=== PATIENT | male | born 1985 | race Caucasian/White ===

== ENCOUNTER 2024-07-18 10:57 | Emergency (ER) | payer OTHER, SELFPAY ==
--- NOTE | 2024-07-18 11:12 | ED_ITS ---
HPI - Ear Problem General Chief complaint: Ear Stated complaint: Bilateral Ear Pain Time Seen by Provider: 07/18/24 11:18 Source: patient Mode of arrival: ambulatory Limitations: no limitations History of Present Illness HPI Narrative: Benigno is a 38-year-old male patient presenting to the clinic today with complaints of bilateral ear pain, sinus pressure, nonproductive cough, sinus congestion, and headache. He reports symptoms have been going on for approximately 2 weeks. States he is tried some Tylenol and Flonase for his symptoms. Denies any chest pain or shortness of breath. Related Data Allergies Allergy/AdvReac Type Severity Reaction Status Date / Time No Known Allergies Allergy Verified 07/18/24 11:15 Review of Systems Review of Systems: Pertinent positives per HPI. Patient denies any fever, chills, rash, visual changes, dizziness, shortness of breath, chest pain, palpitations, nausea, vomiting, diarrhea, constipation, abdominal pain, or any urinary issues. PMFSH Comments At the time of my signature, I reviewed and agree with the nursing past medical, surgical, social, and family history. There is no relevant family history pertinent to the patient complaint. Exam Narrative: General: Well-developed, well nourished, in no apparent distress Head: Normocephalic, atraumatic Eyes: Pupils equally round and reactive to light bilaterally, EOM intact, sclera and conjunctive clear, no discharge, lids normal Ears: TMs intact, congestion, bulging, ear canals clear, no drainage, grossly hearing normal. Nose: Nares patent, yellow nasal discharge, moderate inflammation with white striae, maxillary sinus tenderness. Mouth: Oral pharynx without lesions or masses, good dentition, MMM. Postnasal drip Neck: Supple, trachea midline, no enlargement of anterior or posterior cervical nodes, no thyroid masses or goiter palpable. Cardio: Regular rate and rhythm, s1 and s2 normal, no murmur appreciated. Resp: Clear to auscultation bilaterally, no rhonchi, rales, wheezing or rubs Course Course Emergency Course: Portions of this record may have been created with voice recognition software. Level of Care: Express Care Visit Vital Signs Vital signs: Vital Signs Temperature 36.5 C 07/18/24 11:17 Pulse Rate 91 07/18/24 11:17 Respiratory Rate 16 07/18/24 11:17 Blood Pressure 156/93 H 07/18/24 11:17 Pulse Oximetry 98 07/18/24 11:17 Oxygen Delivery Room Air 07/18/24 11:17 Temperature 36.5 C 07/18/24 11:17 Pulse Rate 91 07/18/24 11:17 Respiratory Rate 16 07/18/24 11:17 Blood Pressure 156/93 H 07/18/24 11:17 Pulse Oximetry 98 07/18/24 11:17 Oxygen Delivery Room Air 07/18/24 11:17 Vital signs reviewed Medical Decision Making MDM Narrative Medical decision making narrative: At the time of visit patient is resting comfortably on the exam table. Patient appears to be nontoxic. Plan: I suspect patient has acute bacterial rhinosinusitis with otalgia. Prescription for Augmentin and prednisone was sent to the pharmacy. Supportive measures were discussed with the patient and they voiced understanding discharge instructions and agrees to treatment plan. Return precautions reviewed Differential Diagnosis Differential Diagnosis: Otitis media, otitis externa, eustachian tube dysfunction, cerumen impaction, upper respiratory infection, serous otitis Vital Signs Vital Signs: Vital Signs Temperature 36.5 C 07/18/24 11:17 Pulse Rate 91 07/18/24 11:17 Respiratory Rate 16 07/18/24 11:17 Blood Pressure 156/93 H 07/18/24 11:17 Pulse Oximetry 98 07/18/24 11:17 Oxygen Delivery Room Air 07/18/24 11:17 Temperature 36.5 C 07/18/24 11:17 Pulse Rate 91 07/18/24 11:17 Respiratory Rate 16 07/18/24 11:17 Blood Pressure 156/93 H 07/18/24 11:17 Pulse Oximetry 98 07/18/24 11:17 Oxygen Delivery Room Air 07/18/24 11:17 Discharge Plan Discharge Clinical Impression: Acute bacterial rhinosinusitis, Acute otalgia Patient Disposition: Home, Self-Care Condition: Stable Instructions: Antibiotic Form, Rhinosinusitis (ED), Earache (ED) Additional Instructions: Take prescription medications only as prescribed-prednisone and Augmentin Increase fluids and stay well hydrated Tylenol/motrin for pain/fever Flonase and OTC antihistamines as directed Vicks vapor rub to open sinuses Sinus rinses for congestion Cepacol spray, cough drops, throat lozenges, warm tea with honey/lemon, gargle salt water to soothe throat BRAT diet for diarrhea Clear liquids x 24 hours then advance as tolerated for nausea/vomiting Go to the ED if you develop a worsening in your condition- high fever not controlled by Tylenol or Motrin, dehydration, weakness, lethargy, shortness of breath, or chest pain. Follow up with your PCP in 3-5 days if symptoms persist. Patient Language: Chinese Prescriptions: New prednisone 20 mg tablet 40 mg PO DAILY 5 Days Qty: 10 0RF amoxicillin-pot clavulanate 875-125 mg tablet 1 tablet PO Q12H 10 Days Qty: 20 0RF Follow-up/Referrals: PHYSICIAN,SPORTS BETTING MANAGER [Primary Care Provider] - Time of Disposition: 11:24 Quality NIHSS Nursing Documentation ED NIHSS nursing documentation: reviewed/agree
--- OUTSIDE RECORDS SUMMARY | 2024-07-18 11:13 | XMS_ITS | Data Portability ---
Author Organization [place] - [facility], Haylee Broussard Address [address] [place] [address] Assessment Encounter Date Assessment Date Assessment LastModified by Organization Details LastModified Time 10/17/2023 10/17/2023 Patient tolerate d treatment well today. Treatment Plan: It is recommended that the patient receive spiritual care coordinator _2_ times per week for _3_ weeks then weekly for 1 month receiving spiritual care coordinator, MH, STIM. Graduate to IST when LEFT SI PAIN and PROM improves The patient will benefit from spiritual care coordinator and supporting therapies to conservatively manage pain and help facilitate a return to max functional capability. The patient's progress is dependent on patient compliance regarding home therapies and following the recommended treatment plan. Prognosis: good Co-Treatment: TBD Imaging: TBD Contraindications : None Patient Treatment Preference: N/A Visit Count: 0 Not available 10/17/2023 10:27:22 10/21/2023 10/21/2023 Patient tolerate d treatment well today. Treatment Plan: It is recommended that the patient receive spiritual care coordinator _2_ times per week for _3_ weeks then weekly for 1 month receiving spiritual care coordinator, MH, STIM. Graduate to IST when LEFT SI PAIN and PROM improves The patient will benefit from spiritual care coordinator and supporting therapies to conservatively manage pain and help facilitate a return to max functional capability. The patient's progress is dependent on patient compliance regarding home therapies and following the recommended treatment plan. Prognosis: good Co-Treatment: TBD Imaging: TBD Contraindications : None Patient Treatment Preference: N/A Visit Count: 1 Not available 10/21/2023 15:22:32 Plan of Treatment Reminders Order Date Submit Date Provider Last Modified By Organization Details Last Modified Time Details Appointments None record ed. Lab None record ed. Referral None record ed. Procedures None record ed. Surgeries None record ed. Imaging None record ed. Medication Orders None record ed. Patient Targets Encounter Date Encounter Id Patient Goals Patient Target Last Modified By Organization Details Last Modified Time 10/17/2023 [id number] 1 month of Pain Not available Not available Not available Jeanette [email or web address] Access Code: [email or web address] Not available 10/17/2023 10:26:33 Patient Instructions Encounter Date Encounter Id Patient Instructions Last Modified By Organization Details Last Modified Time 10/17/2023 [id number] Sit or lie in positions that are most comfortable and reduce your pain. Don t sit up in bed, and avoid soft couches and twisted positions. Bedrest can help relieve pain at first, but it delays healing. Avoid bedrest after the first day of back pain. Change positions every 30 minutes. If you must sit for long periods of time, take breaks from sitting. Get up and walk around, or lie in a comfortable position. Use a heating pad on a low or medium setting for 15 to 20 minutes every 2 or 3 hours. Try a warm shower in place of one session with the heating pad. You can also try an ice pack for 10 to 15 minutes every 2 to 3 hours. Put a thin cloth between the ice pack and your skin. Take Naproxen exactly as directed, up to 500 mg twice daily as need with food. Take short walks several times a day. You can start with 5 to 10 minutes, 2 or 3 times a day, and work up to longer walks. Walk on level surfaces and avoid hills and stairs until your back is better. Return to work and other activities as soon as you can. Continued rest without activity is usually not good for your back. To prevent future back pain, do exercises to stretch and strengthen your back and stomach. Learn how to use good posture, safe lifting techniques, and proper body mechanics. [email or web address] Not available 10/17/2023 10:10:00 Reason for Referral None Reported. Problems Name Problem SNOMED Code Status Onset Date Resolution Date Notes Provider Name and Address Organization Details Recorded Time Low back pain 829311986 Active 2023 Hardik Younger [address], [place], [address], [place] [facility] 10:10:01 Acute low back pain 340815923 Active 2023 Hardik Younger DC [address], [place], [address], [place] [facility] 10:10:04 Sacroiliac joint stiff 334197034 Active 2023 Hardik Younger [address], [place], [address], [place] [facility] 10:27:28 Sacroiliac joint pain 700307979 Active 2023 Hardik Younger DC [address], [place], [address], [place] [facility] 10:27:33 Thoracic segmental dysfunction 804917349 Active 2023 Hardik Younger [address], [place], [address], [facility] 10:27:37 Problem Notes None recorded. Procedures Surgical History Date Name Laterality Status Provider Name and Address Organization Details Recorded Time 11/11/19 92099: Electrical Stimulation (unattended) cancelled Hardik Younger DC [address], [place], [address], [facility] 11/11/2023 15:00:12 11/11/19 24 12957: Chiropractic Manipulative Treatment (CMT) Spinal 3-4 regions cancelled Hardik Younger DC [address], [place], [address], [facility] 11/11/2023 15:00:21 11/05/19 24 01012: Hot or Cold Pack cancelled Hardik Younger DC [address], [place], [address], [facility] 11/05/2023 15:40:56 11/05/19 24 58582: Electrical Stimulation (unattended) cancelled Hardik Younger DC [address], [place], [address], [facility] 11/05/2023 15:41:00 11/05/19 24 82221: Chiropractic Manipulative Treatment (CMT) Spinal 3-4 regions cancelled Hardik Younger DC [address], [place], [address], [place] [facility] 11/05/2023 15:40:58 10/24/19 35122: Hot or Cold Pack cancelled Hardik Younger DC [address], [place], [address], [place] [facility] 10/24/2023 13:51:48 10/24/19 39711: Electrical Stimulation (unattended) cancelled Hardik Younger DC [address], [place], [address], [place] [facility] 10/24/2023 13:51:51 10/24/19 27280: Chiropractic Manipulative Treatment (CMT) Spinal 3-4 regions cancelled Hardik Younger DC [address], [place], [address], [place] [facility] 10/24/2023 13:51:53 10/21/19 95603: Hot or Cold Pack completed Hardik Younger DC [address], [place], [address], [place] [facility] 10/21/2023 15:30:48 10/21/19 77280: Electrical Stimulation (unattended) completed Hardik Younger DC [address], [place], [address], [place] [facility] 10/21/2023 15:30:58 10/21/19 37154: Chiropractic Manipulative Treatment (CMT) Spinal 3-4 regions completed Hardik Younger DC [address], [place], [address], [place] [facility] 10/21/2023 15:34:56 10/17/19 60324: Hot or Cold Pack completed Hardik Younger DC [address], [place], [address], [place] [facility] 10/17/2023 10:24:01 10/17/19 11833: Electrical Stimulation (unattended) completed Hardik Younger DC [address], [place], [address], [place] [facility] 10/17/2023 10:24:11 10/17/19 69452: Chiropractic Manipulative Treatment (CMT) Spinal 3-4 regions completed Hardik Younger DC [address], [place], [address], [place] [facility] 10/17/2023 10:24:22 Imaging Results None recorded. Procedure Notes None recorded. Medical Equipment None Reported. Allergies No known drug allergies Medications Not known to be on any medication Vitals Date Recorded Body height Body mass index (BMI) Body weight Heart rate Oxygen saturation Oxygen saturation in Arterial blood by Pulse oximetry Body temperature Systolic blood pressure Diastolic blood pressure Provider Name and Address Organization Details Last Updated DateTime 180.34 cm 33.8 kg/m2 891454. 35 g 86 /min 98 % 98 % 98.5 [degF] 133 mm[Hg] 85 mm[Hg] Delilah Cervantes [place] [facility] 09:57:41 Social History Question Answer Notes LastModified by Organizat ion Details LastModified Time Tobacco Smoking Status Current Every Day Smoker Delilah mccain, [place] [facility] 10/17/2023 09:51:10 What Is Your Level Of Alcohol Consumption? Moderate [email or web address] Information not available 10/17/2023 What Is Your Level Of Caffeine Consumption? Heavy [email or web address] Information not available 10/17/2023 In The 14 Days Before Symptom Onset, Have You Had Close Contact With A Laboratory-confir med COVID-19 While That Case Was Ill? No [email or web address] Information not available 10/17/2023 In The 14 Days Before Symptom Onset, Have You Had Close Contact With A Person Who Is Under Investigation For COVID-19 While That Person Was Ill? No [email or web address] Information not available 10/17/2023 Have You Been To An Area Known To Be High Risk For COVID-19? No [email or web address] Information not available 10/17/2023 Do You Or Have You Ever Used E-cigarettes Or Vape? Current User Of Electronic Cigarettes Information not available 10/17/2023 Cigar Smoking No [email or web address] Information not available 10/17/2023 What Is Your Current Pack Years? 10-19packyears [email or web address] Information not available 10/17/2023 What Is Your Relationship Status? Single [email or web address] Information not available 10/17/2023 Do You Or Have You Ever Used Smokeless Tobacco? Currently Chews Tobacco [email or web address] Information not available 10/17/2023 How Much Tobacco Do You Smoke? 1 PPD Or Chews Or Vaps [email or web address] Information not available 10/17/2023 How Many Years Have You Smoked Tobacco? 12 [email or web address] Information not available 10/17/2023 Do You Or Have You Ever Used Any Other Forms Of Tobacco Or Nicotine? Yes [email or web address] Information not available 10/17/2023 Sex: Unknown Functional Status None recorded. Mental Status None recorded. Family History Nothing Reported. Medical History No medical history recorded. Past Encounters Encounter ID Performer Location Encounter Start Date Encounter Closed Date Diagnosis/Indication Diagnosis SNOMED-CT Code Diagnosis ICD10 Code Diagnosis Note [id number] Hardik Younger DC [facility] [address] [place] [address] 10/17/2023 09:42:31 10/17/2023 10:42:22 Low back pain 393040917 M54.50 LBP without sciatica, LEFT sacroiliit is, LEFT glute contractur e with QL tension; will manage with chiropract ic until/if symptoms don't improve in the next 6-8 weeks. Sacroiliac joint stiff 991969693 M25.60 LEFT SI Sacroiliac joint pain 20 8730345 M53.3 LEFT SI with AROM Thoracic s egmental dysfunction 802971763 M99.02 Midback tension related to postural alteration s. [id number] Hardik Younger DC [address] [place] [address] 10/21/2023 15:19:25 10/21/2023 15:36:02 Low back pain 779767905 M54.50 LBP without sciatica, LEFT sacroiliit is, LEFT glute contractur e with QL tension; will manage with chiropract ic until/if symptoms don't improve in the next 6-8 weeks. Sacroiliac joint stiff 465237138 M25.60 LEFT SI Sacroiliac joint pain 20 4214260 M53.3 LEFT SI with AROM Thoracic s egmental dysfunction 407285275 M99.02 Midback tension related to postural alteration s. Health Concerns Section Related Observation LastModified by Organization Detai ls LastModified Time None Recorded Concern Status LastModified by Organization Details LastModified Time None Recorded Advance Directives Directive None Recorded Payers Encounter Date Sequence Insurance Name Policy Number Policy Day Covered Member ID Day Member ID Guarantor Name 10/17/2023 1 [facility] [id number] Benigno Salcido [id number] Benigno Salcido 10/21/2023 1 Aaron REECE - [facility] [id number] Benigno Salcido [id number] Benigno Salcido Notes Date Note Type Note Provider Name and Address Organization Details Recorded Time 10/17/2023 text/html Lower BackReport ed bypatient.Location :left Quality:stabbing; sharp Severity:worst pain 8/10 Duration:1 weeks Timing:abrupt; morning Context:cannot identify Alleviating Factors:position change Aggravating Factors:sitting; lying down Patient presents with LBP that began last week on 10/11/23 without incident/injury as he woke up with intense pain in (his) lower back that would spike to 8/10, without sciatica or bladder/bowel changes. Since then, he has been on light duty and his symptoms have gradually decreased with fewer spikes and less intensity. He states his decreased workload has been of help to keep him loosened up . This is his first visit to a chiropractor. Hardik Younger DC [address], [place], [address], [place] [facility] 10/17/2023 10:42:08 10/21/2023 text/html Patient states h e experienced short term improvement with less pain in the morning but increasing pain as the day goes on, with throbbing pain around his LEFT HIP and bending over exacerbates those symptoms. L/S is more dull pain that doesn't vary, especially when driving, LEFT side feels worse. Hardik Younger DC [address], [place], [address], [place] [facility] 10/21/2023 15:35:45
[2024-07-18 11:17] VITALS: BP 156/93; PULSE 91; RESP 16; TEMP 36.5; O2SAT 98
== END 2024-07-18 11:27 | disposition home or self-care (01) ==
PROVIDERS: Emergency Provider Nurse Practitioner Family
DX: J01.90 Acute sinusitis, unspecified (principal); B96.89 Other specified bacterial agents as the cause of diseases classified elsewhere; H92.03 Otalgia, bilateral
CPT/HCPCS: 99203; G0463

== ENCOUNTER 2024-08-27 11:30 | Emergency (ER) | payer OTHER, SELFPAY ==
--- NOTE | 2024-08-27 11:35 | ED_ITS ---
HPI - URI/Sore Throat General Chief Complaint: Upper Respiratory Infection Stated Complaint: sore throat / Rt Ear Pain History of Present Illness HPI Narrative: 38 y/o male presented for c/o sore throat worsening x3 days. States he woke this morning feeling like something was stuck in his throat, and feels like he has mucous in the throat. States after talking loudly at work he gagged. Also reports right ear pain x3 days, tinnitus and burning sensation. Denies nasal congestion, headache, vomiting, or fever. Taking Theraflu, Dayquil and a 'sinus pill' since yesterday. Related Data Allergies Allergy/AdvReac Type Severity Reaction Status Date / Time No Known Allergies Allergy Verified 08/27/24 11:36 Review of Systems Review of Systems: per [facility] Social History Social History (Updated 08/27/24 @ 11:45 by Misti Pickering, [employer] [place]) Smoking packs per day: 1 Smoking cigarettes per day: 20.0 Smoking status: Current every day smoker Tobacco type: cigarettes Exam Narrative: GENERAL: well-appearing, no acute distress. EYES: conjunctivae clear ENT: Mucous membranes moist. TMs pearly farias with normal light reflex bilaterally; no tragal tenderness. Oropharynx severely erythematous Tonsils enlarged 3+ with exudate bilaterally. No drooling, no hoarseness, no trismus, uvula midline. No tripod positioning, hot potato voice, or soft palate swelling. NECK: Supple. bilateral anterior cervical lymphadenopathy CHEST: Clear to auscultation, breath sounds equal. No respiratory distress, speaks in full sentences. HEART: Tachycardic and Regular rhythm. No murmur heard. SKIN: Warm, moist NEURO: Alert and oriented x3. Course Course Emergency Course: Patient is aware of diagnosis, understands and agrees to treatment plan. Anticipatory guidance given. Patient agrees to follow-up as directed and is aware of reasons to seek care at the emergency department. Portions of this record may have been created with voice recognition software Level of Care: Express Care Visit MDM - URI/Sore Throat MDM Narrative Medical decision making narrative: strep result and physical exam findings reviewed with pt. Will treat based on PE and CC. Advise supportive treatments and s/s to go to the ER. Patient is appropriate for outpatient treatment and follow-up. Differential Diagnosis Differential diagnosis: Likely upper respiratory infection, viral infection and pharyngitis Discharge Plan Discharge Clinical Impression: Exudative tonsillitis Patient Disposition: Home Condition: Stable Instructions: Antibiotic Form, Strep Throat (ED) Additional Instructions: - Take the antibiotic as directed. Fever and sore throat typically resolve within one to three days. Most patients can return to work, after 12 to 24 hours of antibiotic therapy, provided you are fever free and otherwise well. -Eat and drink things that are easy to swallow, like soft foods, cool liquids, tea with honey, or popsicles . -Salt water gargles and/or may use topical anesthetic ( Chloraseptic spray) or lozenges to relieve dryness or throat pain -Alternate Tylenol and ibuprofen as needed for pain and fever as directed. -Frequent hand washing or hand adult literacy instructor is one of the best ways to prevent spread of infection. Throw away the toothbrush after 24hours of antibiotic. -Follow up with primary care provider in 2-3 days if condition is not improving -Go to the ER if you have trouble breathing, cannot drink enough fluids, have muffled voice or drooling, difficulty opening your mouth, or severe swelling. Patient Language: Turkish Prescriptions: New amoxicillin 500 mg tablet 1,000 mg PO DAILY 10 Days Qty: 20 0RF prednisone 50 mg tablet 50 mg PO DAILY Qty: 5 0RF Follow-up/Referrals: PHYSICIAN,LICENSE REGISTRATION EXAMINER [Primary Care Provider] - Stand Alone Forms: Work/School Release IP Time of Disposition: 11:54
[2024-08-27 11:36] VITALS: BP 153/83; PULSE 125; RESP 18; TEMP 37.1; O2SAT 98
[2024-08-27 11:55] LABS: EDSTREPNEGPOS1 Negative (Negative)
== END 2024-08-27 11:57 | disposition home or self-care (01) ==
PROVIDERS: Emergency Provider Nurse Practitioner Family
DX: J03.90 Acute tonsillitis, unspecified (principal); F17.210 Nicotine dependence, cigarettes, uncomplicated
CPT/HCPCS: 87081; 87880; 99213; G0463